=== PATIENT | male | born 1950 | race Asian ===

== ENCOUNTER 2019-09-01 14:33 | Emergency (ER) | payer OTHER, BC ==
[~2019-09-01] VITALS: Ht 170.2 cm; Wt 74.4 kg
[2019-09-01 14:47] VITALS: Ht 170.2 cm; Wt 74.4 kg
[2019-09-01 16:42] VITALS: BP 121/91
== END 2019-09-01 16:42 | disposition home or self-care (01) ==
LOC: ED 14:33
DX: B34.9 Viral infection, unspecified (principal); Z88.6 Allergy status to analgesic agent